=== PATIENT | female | born 1965 | race Caucasian/White ===

== ENCOUNTER 2024-11-28 04:24 | Day surgery (SDC) | payer OTHER ==
[2024-11-28] MEDS ORDERED: ONDANSETRON 4 MG/2 ML VIAL IVPUSH PRN (08:52)
[2024-11-28] MEDS ORDERED: LIDOCAINE HCL 1%, 10 MG/ML (20ML VIAL) ONE (09:38)
[2024-11-28] MEDS ORDERED: ISOSULFAN BLUE 50 MG/5 ML VIAL SQ ONE (09:39)
[2024-11-28] MEDS ORDERED: ROCURONIUM BROMIDE 50 MG/5 ML SYRINGE ONE ×2 (10:19→11:24)
[2024-11-28] MEDS ORDERED: MIDAZOLAM HCL 2 MG/2 ML SINGLE DOSE VIAL ONE (10:19)
[2024-11-28] MEDS ORDERED: PROPOFOL 20 ML ONE (10:19)
[2024-11-28] MEDS ORDERED: ceFAZolin SODIUM 1 GM VIAL ONE (10:31)
[2024-11-28] MEDS ORDERED: DEXAMETHASONE SOD PHOSPHATE 4 MG/1 ML VIAL ONE (10:34)
[2024-11-28] MEDS ORDERED: ONDANSETRON 4 MG/2 ML VIAL ONE (10:34)
[2024-11-28] MEDS ORDERED: LIDOCAINE HCL/PF 2% SDV 5ML VIAL ONE (10:34)
[2024-11-28] MEDS: ceFAZolin SODIUM 1 GM VIAL IVPB ONE (10:35)
[2024-11-28] MEDS ORDERED: HYDROmorphone HCl 2 MG/ML VIAL ONE (11:12)
[2024-11-28] MEDS ORDERED: ePHEDrine SULFATE 50 MG/1 ML AMPULE ONE (11:21)
[2024-11-28] MEDS ORDERED: HYDROmorphone HCL CARPU-JECT 2 MG/1 ML DISP.SYRIN IVPB PRN (11:33)
[2024-11-28] MEDS ORDERED: SUGAMMADEX SODIUM 200 MG/2 ML VIAL ONE (11:55)
[2024-11-28] MEDS ORDERED: ACETAMINOPHEN INJECTION 100 ML ONE (12:05)
[2024-11-28] MEDS: metFORMIN HCL 500 MG TABLET (FP) PO SCH (16:09)
[2024-11-28] MEDS: LACTATED RINGERS SOLUTION 1,000 ML IV SCH (16:09)
[2024-11-28] MEDS: oxyCODONE HCL 5 MG TABLET PO PRN (16:11)
[2024-11-28] MEDS: CEFAZOLIN 1 GM/D5W 1 GM/50 ML BAG IVPB SCH (17:42)
[2024-11-29] MEDS: ESCITALOPRAM OXALATE 10 MG TABLET PO SCH (09:05)
[2024-11-29 09:35] VITALS: BP 109/53; PULSE 87; RESP 17; TEMP 98.2
== END 2024-11-29 14:41 | disposition home or self-care (01) ==
LOC: JASUSAT 04:24 → J6S 14:48 → JASUSAT 11-29 14:41
PROVIDERS: ATTEND Surgery
PROC: 0HHU0NZ Insertion of Tissue Expander into Left Breast, Open Approach (ICD-10-PCS; 2024-11-28)
PROC: 0HPU0JZ Removal of Synthetic Substitute from Left Breast, Open Approach (ICD-10-PCS; 2024-11-28)
PROC: 0HTU0ZZ Resection of Left Breast, Open Approach (ICD-10-PCS; principal; 2024-11-28 10:46)
PROC: 0HRU0JZ Replacement of Left Breast with Synthetic Substitute, Open Approach (ICD-10-PCS; 2024-11-28 10:46)
PROC: 0HHU0NZ Insertion of Tissue Expander into Left Breast, Open Approach (ICD-10-PCS; 2024-11-28 10:46)
DX: C50.912 Malignant neoplasm of unspecified site of left female breast (principal)
CPT/HCPCS: 78195-TC; 82962; 86850; 86900; 86901; 88307-TC; 88342-TC; 94760; A9541; J0131; Q4116